=== PATIENT | male | born 1955 | race Hispanic/Latino ===

== ENCOUNTER 2022-05-31 14:51 | Emergency (ER) | payer OTHER ==
[~2022-05-31] VITALS: Ht 162.6 cm; Wt 68.0 kg
[2022-05-31] MEDS ORDERED: CEFD300C3 PO (15:09)
[2022-06-08] MEDS ORDERED: LEVO500T90 PO (12:09)
== END 2022-05-31 16:42 | disposition home or self-care (01) ==
LOC: EDH 14:51
DX: T83.090A Other mechanical complication of cystostomy catheter, initial encounter (principal); R31.9 Hematuria, unspecified; E78.00 Pure hypercholesterolemia, unspecified; I10 Essential (primary) hypertension; Z86.73 Personal history of transient ischemic attack (TIA), and cerebral infarction without residual deficits; Y83.8 Other surgical procedures as the cause of abnormal reaction of the patient, or of later complication, without mention of misadventure at the time of the procedure; Y92.89 Other specified places as the place of occurrence of the external cause
CPT/HCPCS: 51705; 87077; 87088; 87186

== ENCOUNTER 2022-05-31 19:20 | Emergency (ER) | payer OTHER ==
[~2022-05-31 19:20] MED LIST: CEFD300C3 PO
[2022-05-31] MEDS ORDERED: 0.9% NACL 500ML IV.SOLN 500 ML IV ONE (19:30)
[2022-05-31 19:44] LABS: BASOPHILS % (AUTO) 0.9 % (0.0-5.0); EOSINOPHILS % (AUTO) 2.8 % (0.0-8.0); HEMATOCRIT 38.4 % (42-54); LYMPHOCYTES % (AUTO) 27.9 % (21.0-51.0); MEAN CORPUSCULAR HEMOGLOBIN 28.5 pg (27.0-33.0); MEAN CORPUSCULAR HGB CONC 32.6 g/dL (32.0-36.0); MEAN CORPUSCULAR VOLUME 87.5 fL (79-99); NEUTROPHILS % (AUTO) 58.2 % (40.0-77.0); PLATELET COUNT (AUTO) 156 K/uL (130-400); RED BLOOD CELL COUNT(AUTO) 4.39 MIL/uL (4.50-6.20); RED CELL DISTRIBUTION WIDTH 14.4 % (11.0-15.5); WHITE BLOOD COUNT (AUTO) 11.7 K/uL (4.8-10.8)
[2022-05-31 19:59] LABS: APPEARANCE,URINE CLOUDY (CLEAR); BILIRUBIN,URINE SMALL (NEGATIVE); COLOR,URINE BROWN (YELLOW); GLUCOSE, URINE (UA) NEGATIVE (NEGATIVE); KETONES,URINE 5 mg/dL (NEGATIVE); LEUKOCYTE ESTERASE ,URINE MODERATE (NEGATIVE); NITRATE,URINE NEGATIVE (NEGATIVE); OCCULT BLOOD,URINE LARGE (NEGATIVE); PH,URINE 5.5 (5.0-8.0); PROTEIN,URINE 100 mg/dL (NEGATIVE); UROBILINOGEN,URINE 0.2 mg/dL (0.2-1.0)
[2022-05-31] MEDS ORDERED: ONDANSETRON 4MG INJ IVP ONE (20:00)
[2022-05-31] MEDS ORDERED: MORPHINE 2 MG SYG IVP ONE (20:00)
[2022-05-31 20:02] LABS: CREATININE 2.4 mg/dL (0.5-1.5); POTASSIUM 3.9 mmol/L (3.5-5.1)
[2022-05-31 20:05] VITALS: BP 139/65
[2022-05-31 20:07] LABS: ALBUMIN 3.4 g/dL (3.5-5.0); TOTAL PROTEIN, SERUM 7.4 g/dL (6.0-8.3)
[2022-05-31 20:08] LABS: BACTERIA,URINE Few /HPF (None Seen); RBC,URINE >100 /HPF (0-1); SQUAMOUS EPITHELIAL CELL,UR Few /HPF (0-2); WBC,URINE 26-50 /HPF (0-1)
[2022-06-08] MEDS ORDERED: LEVO500T90 PO (12:09)
== END 2022-05-31 21:41 | disposition home or self-care (01) ==
LOC: EDH 19:20
DX: N48.89 Other specified disorders of penis (principal); E78.00 Pure hypercholesterolemia, unspecified; I10 Essential (primary) hypertension; Z86.73 Personal history of transient ischemic attack (TIA), and cerebral infarction without residual deficits
CPT/HCPCS: 99284; 96374; 96361; 96375; 80053; 85025; 81001; 36415; J7040; J2405

== ENCOUNTER 2022-06-06 17:17 | Inpatient (IN) | payer OTHER ==
[~2022-06-06] VITALS: Ht 170.2 cm; Wt 87.5 kg
[2022-06-06 17:45] LABS: BASOPHILS % (AUTO) 0.8 % (0.0-5.0); EOSINOPHILS % (AUTO) 3.7 % (0.0-8.0); HEMATOCRIT 36.5 % (42-54); LYMPHOCYTES % (AUTO) 27.7 % (21.0-51.0); MEAN CORPUSCULAR HEMOGLOBIN 28.5 pg (27.0-33.0); MEAN CORPUSCULAR HGB CONC 32.1 g/dL (32.0-36.0); MEAN CORPUSCULAR VOLUME 88.8 fL (79-99); NEUTROPHILS % (AUTO) 60.5 % (40.0-77.0); PLATELET COUNT (AUTO) 132 K/uL (130-400); RED BLOOD CELL COUNT(AUTO) 4.11 MIL/uL (4.50-6.20); RED CELL DISTRIBUTION WIDTH 14.6 % (11.0-15.5)
[2022-06-06 17:48] LABS: APPEARANCE,URINE Clear (CLEAR); BILIRUBIN,URINE Negative (NEGATIVE); COLOR,URINE Yellow (YELLOW); GLUCOSE, URINE (UA) Negative (NEGATIVE); KETONES,URINE Negative (NEGATIVE); LEUKOCYTE ESTERASE ,URINE Small (NEGATIVE); NITRATE,URINE Negative (NEGATIVE); OCCULT BLOOD,URINE Trace (NEGATIVE); PROTEIN,URINE POS 1+ mg/dL (NEGATIVE)
[2022-06-06 17:59] LABS: ALBUMIN 3.2 g/dL (3.5-5.0); CREATININE 2.5 mg/dL (0.5-1.5); POTASSIUM 3.8 mmol/L (3.5-5.1); TOTAL PROTEIN, SERUM 6.8 g/dL (6.0-8.3)
[2022-06-06 18:24] LABS: BACTERIA,URINE Few /HPF (None Seen)
[2022-06-06 18:25] LABS: SQUAMOUS EPITHELIAL CELL,UR Rare /HPF (0-2)
[2022-06-06] MEDS ORDERED: HYDR-4153 PO (20:47)
[2022-06-06] MEDS ORDERED: LISI5TAB21 PO (20:47)
[2022-06-06] MEDS ORDERED: METO50TA18 PO (20:47)
[2022-06-06] MEDS ORDERED: FLUO10CA24 PO (20:47)
[2022-06-06] MEDS ORDERED: ASPI-1197 PO (20:47)
[2022-06-06] MEDS ORDERED: TRAZ-185 PO (20:47)
[2022-06-06] MEDS ORDERED: AMLO-258 PO (20:47)
[2022-06-06] MEDS ORDERED: VITAD50000 PO (20:47)
[2022-06-06] MEDS ORDERED: METH1TAB30 PO (20:47)
[2022-06-06] MEDS ORDERED: ATOR40TA69 PO (20:52)
[2022-06-06] MEDS ORDERED: FOLI1TAB61 PO (20:52)
[2022-06-06] MEDS ORDERED: ONDANSETRON 4MG INJ IV PRN (21:00)
[2022-06-06] MEDS ORDERED: MORPHINE 2 MG SYG IM ONE (21:00)
[2022-06-06] MEDS ORDERED: ACETAMINOPHEN 325 MG TAB PO PRN (21:00)
[2022-06-06 21:14] LABS: CREATININE,URINE RANDOM 136 mg/dL (30-135); SODIUM,URINE RANDOM 44 mmol/l (40-220)
[2022-06-06] MEDS: HEPARIN 5,000 UNIT VIAL SQ SCH (21:19)
[2022-06-06] MEDS: 0.9%NACL 1000ML 1,000 ML IV SCH (21:19)
[2022-06-06] MEDS: CEFTRIAXONE 1G VIAL IV SCH (21:19)
[2022-06-07 06:56] LABS: BASOPHILS % (AUTO) 0.9 % (0.0-5.0); HEMATOCRIT 33.5 % (42-54); LYMPHOCYTES % (AUTO) 34.6 % (21.0-51.0); MEAN CORPUSCULAR HEMOGLOBIN 28.9 pg (27.0-33.0); MEAN CORPUSCULAR HGB CONC 32.5 g/dL (32.0-36.0); MEAN CORPUSCULAR VOLUME 88.9 fL (79-99); MONOCYTES % (AUTO) 7.3 % (3.0-13.0); PLATELET COUNT (AUTO) 110 K/uL (130-400); RED BLOOD CELL COUNT(AUTO) 3.77 MIL/uL (4.50-6.20); RED CELL DISTRIBUTION WIDTH 14.6 % (11.0-15.5)
[2022-06-07 07:06] LABS: PHOSPHORUS 3.7 mg/dL (2.5-4.9); POTASSIUM 3.7 mmol/L (3.5-5.1)
[2022-06-07] MEDS: Vitamin B Complex/Vit C/Folic Acid PO SCH (08:22)
[2022-06-07] MEDS: ASPIRIN 81MG CHEW TAB PO SCH (08:22)
[2022-06-07] MEDS: HEPARIN 5,000 UNIT VIAL SQ SCH ×2 (08:22→22:06)
[2022-06-07] MEDS: HYDRALAZINE 25MG TABLET PO SCH ×3 (08:36→22:06)
[2022-06-07] MEDS: AMLODIPINE 5 MG TAB PO SCH (08:36)
[2022-06-07] MEDS: CHOLECALCIFEROL 25 MCG PO SCH (09:00)
[2022-06-07] MEDS ORDERED: HYDRALAZINE 25MG TABLET PO SCH (09:00)
[2022-06-07] MEDS ORDERED: LISINOPRIL 5 MG TABLET PO SCH (09:00)
[2022-06-07] MEDS ORDERED: ATORVASTATIN 40 MG TABLET PO SCH (09:00)
[2022-06-07] MEDS: METHENAMINE HIPPURATE 1 GM PO SCH ×2 (09:00→21:00)
[2022-06-07] MEDS ORDERED: AMLODIPINE 5 MG TAB PO SCH (09:00)
[2022-06-07] MEDS: FLUOXETINE HCL 10 MG CAPSULE PO SCH ×2 (09:16→22:06)
[2022-06-07] MEDS: DOXAZOSIN MESYLATE 2 MG TABLET PO SCH (10:45)
[2022-06-07] MEDS: 0.9%NACL 1000ML 1,000 ML IV SCH (15:18)
[2022-06-07] MEDS ORDERED: TRAZODONE HCL 50 MG TAB PO SCH (21:00)
[2022-06-07] MEDS: CEFTRIAXONE 1G VIAL IV SCH (22:06)
[2022-06-07 23:30] VITALS: BP 128/75
[2022-06-08 04:09] VITALS: BP 134/87
[2022-06-08 05:30] LABS: BASOPHILS % (AUTO) 0.7 % (0.0-5.0); EOSINOPHILS % (AUTO) 2.6 % (0.0-8.0); HEMATOCRIT 32.1 % (42-54); LYMPHOCYTES % (AUTO) 24.1 % (21.0-51.0); MEAN CORPUSCULAR HEMOGLOBIN 28.8 pg (27.0-33.0); MEAN CORPUSCULAR HGB CONC 32.1 g/dL (32.0-36.0); MEAN CORPUSCULAR VOLUME 89.7 fL (79-99); MONOCYTES % (AUTO) 7.6 % (3.0-13.0); NEUTROPHILS % (AUTO) 64.7 % (40.0-77.0); PLATELET COUNT (AUTO) 107 K/uL (130-400); RED BLOOD CELL COUNT(AUTO) 3.58 MIL/uL (4.50-6.20); RED CELL DISTRIBUTION WIDTH 14.5 % (11.0-15.5); WHITE BLOOD COUNT (AUTO) 8.6 K/uL (4.8-10.8)
[2022-06-08 05:46] LABS: ALBUMIN 2.8 g/dL (3.5-5.0); MAGNESIUM 2.2 mg/dL (1.80-2.40); POTASSIUM 3.9 mmol/L (3.5-5.1); TOTAL PROTEIN, SERUM 6.3 g/dL (6.0-8.3)
[2022-06-08 07:02] VITALS: BP 110/74
[2022-06-08] MEDS ORDERED: HYDRALAZINE 25MG TABLET PO SCH (09:00)
[2022-06-08] MEDS: METHENAMINE HIPPURATE 1 GM PO SCH (09:00)
[2022-06-08] MEDS: CHOLECALCIFEROL 25 MCG PO SCH (09:00)
[2022-06-08] MEDS ORDERED: FAMOTIDINE 20MG TAB PO SCH (09:00)
[2022-06-08] MEDS: AMLODIPINE 5 MG TAB PO SCH (09:44)
[2022-06-08] MEDS: FLUOXETINE HCL 10 MG CAPSULE PO SCH (09:44)
[2022-06-08] MEDS: Vitamin B Complex/Vit C/Folic Acid PO SCH (09:45)
[2022-06-08] MEDS: DOXAZOSIN MESYLATE 2 MG TABLET PO SCH (09:45)
[2022-06-08] MEDS: ASPIRIN 81MG CHEW TAB PO SCH (09:45)
[2022-06-08] MEDS: HEPARIN 5,000 UNIT VIAL SQ SCH (09:50)
[2022-06-08] MEDS ORDERED: LEVO-70 PO (12:09)
[2022-06-08] MEDS ORDERED: AMLO5TAB4 PO (12:09)
[2022-06-08] MEDS ORDERED: DOXA2TAB2 PO (12:09)
[2022-06-08] MEDS ORDERED: ATORVASTATIN 40 MG TABLET PO SCH (21:00)
== END 2022-06-08 12:45 | disposition home or self-care (01) | DRG 309 ==
LOC: EDH 17:17 → EDHIP 20:54 → 4DH 06-07 22:18
PROVIDERS: ADMIT Internal Medicine; ATTEND Internal Medicine
DX: R00.1 Bradycardia, unspecified (principal); I69.354 Hemiplegia and hemiparesis following cerebral infarction affecting left non-dominant side; N39.0 Urinary tract infection, site not specified; N17.9 Acute kidney failure, unspecified; T44.7X5A Adverse effect of beta-adrenoreceptor antagonists, initial encounter; E86.9 Volume depletion, unspecified; D69.6 Thrombocytopenia, unspecified; I12.9 Hypertensive chronic kidney disease with stage 1 through stage 4 chronic kidney disease, or unspecified chronic kidney disease; N18.9 Chronic kidney disease, unspecified; Z79.899 Other long term (current) drug therapy; F32.A Depression, unspecified; E78.00 Pure hypercholesterolemia, unspecified; G47.00 Insomnia, unspecified; D50.9 Iron deficiency anemia, unspecified; Z93.59 Other cystostomy status
CPT/HCPCS: 36415; 71045; 76770; 80048; 80053; 81001; 82570; 82948; 83735; 83880; 83935; 84100; 84300; 84484; 85025; 87077; 87088; 87186; 93005; G0378; J0696; J1644; J7030